=== PATIENT | male | born 1980 ===

== ENCOUNTER 2016-07-28 09:26 | Emergency (ER) | payer MEDICAID ==
[2016-07-28 09:52] VITALS: BP 143/77; PULSE 72; RESP 18; TEMP 98; O2SAT 100
--- NOTE | 2016-07-28 10:36 | ED PDOC ---
HPI: Psych/Substance Abuse Time Seen by Provider: 07/28/16 09:54 Chief Complaint (Nursing): Anxiety Chief Complaint (Provider): anxiety History Per: Patient History/Exam Limitations: no limitations Onset/Duration Of Symptoms: Days (x 2 weeks) Current Symptoms Are (Timing): Intermittent Episodes Associated Symptoms: Anxiety Additional Complaint(s): Jw Lackey is a 36 year old male, with a previous medical history of anxiety, who presents to the ED with complaints of intermittent episodes of anxiety ongoing for the past 2 weeks. He reports experiencing at least one episode a day which lasts anywhere from a few minutes to 30 minutes. Patient reports during anxiety episodes to feeling jittery and short of breath. Patient thinks increase in anxiety could be due to stopping his pain medication of tramadol and percocets after his back surgery. He is requesting to speak to crisis but denies any suicidal ideation or homicidal ideation. PMD: none provided Past Medical History Reviewed: Historical Data, Nursing Documentation, Vital Signs Vital Signs: Last Vital Signs Temp 98 F 07/28/16 09:47 Pulse 72 07/28/16 09:47 Resp 18 07/28/16 09:47 BP 143/77 07/28/16 09:47 Pulse Ox 100 07/28/16 09:47 - Medical History PMH: Back Problems (Chronic) - Surgical History Surgical History: Cholecystectomy - Family History Family History: States: Unknown Family Hx - Social History Current smoker - smoking cessation education provided: Yes Alcohol: Social - Immunization History Hx Tetanus Toxoid Vaccination: No Hx Influenza Vaccination: No Hx Pneumococcal Vaccination: No - Home Medications Home Medications: Ambulatory Orders Medication Instructions Recorded Famotidine [Pepcid] 20 mg PO BID #10 tab 02/28/14 Ondansetron [Zofran Odt] 4 mg PO BID #10 odt 02/28/14 Tizanidine Hydrochloride 4 mg PO Q6 PRN #20 tab 02/01/15 [Tizanidine HCl] oxyCODONE/Acetaminophen [Percocet 1 tab PO Q6H PRN #18 tab 02/01/15 5/325 mg Tab] Alprazolam [Xanax] 0.5 mg PO HS #5 tab 07/28/16 - Allergies Allergies/Adverse Reactions: Allergies Allergy/AdvReac Type Severity Reaction Status Date / Time No Known Allergies Allergy Verified 07/28/16 09:41 Review of Systems ROS Statement: Except As Marked, All Systems Reviewed And Found Negative Psych: Positive for: Anxiety. Negative for: Suicidal ideation Physical Exam - Reviewed Nursing Documentation Reviewed: Yes Vital Signs Reviewed: Yes - Physical Exam Appears: Positive for: Well, Non-toxic, No Acute Distress Head Exam: Positive for: ATRAUMATIC, NORMAL INSPECTION, NORMOCEPHALIC Skin: Positive for: Normal Color, Warm, DRY Eye Exam: Positive for: EOMI, Normal appearance, PERRL ENT: Positive for: Normal ENT Inspection Neck: Positive for: Normal, Painless ROM Cardiovascular/Chest: Positive for: Regular Rate, Rhythm Respiratory: Positive for: CNT, Normal Breath Sounds Gastrointestinal/Abdominal: Positive for: Normal Exam, Bowel Sounds, Soft Back: Positive for: Normal Inspection Extremity: Positive for: Normal ROM Neurologic/Psych: Positive for: Alert, Oriented - Laboratory Results Result Diagrams: 07/28/16 11:10 07/28/16 11:45 - ECG O2 Sat by Pulse Oximetry: 100 (RA) Pulse Ox Interpretation: Normal Medical Decision Making Medical Decision Making: Initial Impression: Anxiety Initial Plan: * EKG * Troponin I * thyroid stimulating hormone * labs * crisis * reevaluation * * labs resulted and reviewed with pt who demonstrated full understanding. * Pt underwent crisis eval, see note. Scribe Attestation: Documented by Neda Shanks, acting as a scribe for Ambika Gross PA-C. Provider Scribe Attestation: All medical record entries made by the Scribe were at my direction and personally dictated by me. I have reviewed the chart and agree that the record accurately reflects my personal performance of the history, physical exam, medical decision making, and the department course for this patient. I have also personally directed, reviewed, and agree with the discharge instructions and disposition. Disposition - Clinical Impression Clinical Impression: Anxiety - Patient ED Disposition Is Patient to be Admitted: No - Disposition Disposition: Routine/Home Disposition Time: 12:39 Condition: STABLE Prescriptions: Alprazolam [Xanax] 0.5 mg PO HS #5 tab Instructions: Anxiety (ED)
[2016-07-28 11:26] LABS: BASO % 0.3 % (0.0-2.0); EOS % 0.4 % (0.0-4.0); HEMATOCRIT 42.1 % (35.0-51.0); LYMPH # 1.9 K/uL (1.0-4.3); LYMPH % 20.9 % (20.0-40.0); MEAN CORPUSCULAR HEMOGLOBIN 28.9 pg (27.0-31.0); MEAN CORPUSCULAR HGB CONC 32.5 g/dL (33.0-37.0); MEAN PLATELET VOLUME 7.6 fl (7.2-11.7); MONO # 0.6 K/uL (0.0-0.8); MONO % 6.8 % (0.0-10.0); NEUT # 6.6 K/uL (1.8-7.0); NEUT % 71.6 % (50.0-75.0); NRBC % 0.1 % (0.0-0.0); WHITE BLOOD COUNT 9.2 K/uL (4.8-10.8)
[2016-07-28 11:37] LABS: ALB/GLOB RATIO 1.4 (1.0-2.1); ALKALINE PHOSPHATASE 60 U/L (38-126); ALT/SGPT 22 U/L (21-72); AST/SGOT 16 U/L (17-59); BILIRUBIN,TOTAL 1.1 mg/dl (0.2-1.3); BLOOD UREA NITROGEN 13 mg/dl (9-20); CALCIUM 9.3 mg/dL (8.4-10.2); CARBON DIOXIDE 28 mmol/L (22-30); CHLORIDE 105 mmol/L (98-107); GFR AFRICAN-AMERICAN > 60; GLUCOSE,RANDOM 85 mg/dL (75-110); POTASSIUM 3.9 MMOL/L (3.6-5.0); SODIUM 143 mmol/l (132-148); TOTAL PROTEIN 7.3 G/DL (6.3-8.2)
[2016-07-28 12:06] LABS: THYROID STIMULATING HORMONE 0.61 mIU/ML (0.46-4.68)
--- NOTE | 2016-07-28 13:46 | CARD ---
APPROVED REPORT EKG Measurement Heart [id number] <Conclusion> Sinus bradycardia Otherwise normal ECG
== END 2016-07-28 12:30 | disposition home or self-care (01) ==
LOC: H.ER 09:26
DX: F41.9 Anxiety disorder, unspecified (principal); F17.200 Nicotine dependence, unspecified, uncomplicated

== ENCOUNTER 2017-01-16 19:22 | Emergency (ER) | payer MEDICAID ==
[2017-01-16 19:38] VITALS: BP 150/75; PULSE 74; RESP 18; TEMP 97.8; O2SAT 100
--- NOTE | 2017-01-30 14:25 | ED PDOC ---
HPI: Headache Time Seen by Provider: 01/16/17 19:40 Chief Complaint (Nursing): Headache Chief Complaint (Provider): Headache, sharp for 3 days History Per: Patient History/Exam Limitations: no limitations Onset/Duration Of Symptoms: Days Current Symptoms Are (Timing): Still Present Severity: Moderate Pain Scale Rating Of: 5 Quality: Sharp Preceeding Symptoms: None Associated Symptoms: denies: Photophobia, Blurred Vision, Nausea, Vomiting, Extremity Weakness Additional Complaint(s): Pt does not want medications in the ER. Past Medical History Reviewed: Historical Data, Nursing Documentation, Vital Signs Vital Signs: Last Vital Signs Temp 97.8 F 01/16/17 19:35 Pulse 74 01/16/17 19:35 Resp 18 01/16/17 19:35 BP 150/75 01/16/17 19:35 Pulse Ox 100 01/16/17 19:35 - Medical History PMH: Back Problems (Chronic) Denies: Diabetes, Hepatitis, HIV, HTN, Seizures, Sexually Transmitted Disease - Surgical History Surgical History: Cholecystectomy - Family History Family History: States: Unknown Family Hx - Living Arrangements Living Arrangements: With Family - Social History Current smoker - smoking cessation education provided: No - Immunization History Hx Tetanus Toxoid Vaccination: No Hx Influenza Vaccination: No Hx Pneumococcal Vaccination: No - Home Medications Home Medications: Ambulatory Orders Medication Instructions Recorded Famotidine [Pepcid] 20 mg PO BID #10 tab 02/28/14 Ondansetron [Zofran Odt] 4 mg PO BID #10 odt 02/28/14 Tizanidine Hydrochloride 4 mg PO Q6 PRN #20 tab 02/01/15 [Tizanidine HCl] oxyCODONE/Acetaminophen [Percocet 1 tab PO Q6H PRN #18 tab 02/01/15 5/325 mg Tab] Alprazolam [Xanax] 0.5 mg PO HS #5 tab 07/28/16 - Allergies Allergies/Adverse Reactions: Allergies Allergy/AdvReac Type Severity Reaction Status Date / Time No Known Allergies Allergy Verified 07/28/16 09:41 Review of Systems ROS Statement: Except As Marked, All Systems Reviewed And Found Negative Constitutional: Negative for: Fever, Chills Neurological: Positive for: Headache. Negative for: Weakness, Numbness, Incoordination, Confusion, Seizures, Altered Mental Status, Dizziness Physical Exam - Reviewed Nursing Documentation Reviewed: Yes Vital Signs Reviewed: Yes - Physical Exam Appears: Positive for: Well, Non-toxic, No Acute Distress Head Exam: Positive for: ATRAUMATIC, NORMAL INSPECTION, NORMOCEPHALIC Skin: Positive for: Normal Color, Warm, DRY Eye Exam: Positive for: Normal appearance ENT: Positive for: Normal ENT Inspection Neck: Positive for: Normal, Painless ROM Cardiovascular/Chest: Positive for: Regular Rate, Rhythm Respiratory: Positive for: CNT, Normal Breath Sounds Back: Positive for: Normal Inspection Extremity: Positive for: Normal ROM Neurologic/Psych: Positive for: Alert, ruby rails developer II-XII, Oriented, Mood/Affect, Cerebellar Tests, Gait. Negative for: Motor/Sensory Deficits, Aphasia, Facial Droop - ECG O2 Sat by Pulse Oximetry: 100 Disposition - Clinical Impression Clinical Impression: Tension headache - Disposition Disposition Time: 19:50 Condition: STABLE Instructions: Tension Headache (ED) Forms: [facility] (C[place])
== END 2017-01-16 20:00 | disposition home or self-care (01) ==
LOC: H.ER 19:22
DX: G44.209 Tension-type headache, unspecified, not intractable (principal)